=== PATIENT | female | born 1935 | race Caucasian/White ===

== ENCOUNTER 2023-03-09 22:10 | Inpatient (IN) | payer MEDICARE, OTHER ==
[2023-03-09] MEDS: Albuterol/Ipratropium 3.0-0.5 MG/3 ML Neb Soln NEB ONE ×2 (22:30→23:00)
[2023-03-09] MEDS: Albuterol/Ipratropium 3.0-0.5 MG/3 ML Neb Soln ONE (22:52)
[2023-03-09] MEDS: methylPREDNISolone Sodium Succinate 125 MG/2 ML SDV IVPUSH ONE (22:54)
[2023-03-09 22:59] LABS: BASE EXCESS VENOUS,POC -1 mmol/L (-2 - 3+); PCO2 VENOUS,POC 43 mmHg (41-51); PH VENOUS,POC 7.36 pH Units (7.32-7.43)
[2023-03-09 23:16] LABS: BASOPHILS PERCENT AUTO 0.2 % (0.2-1.5); EOSINOPHILS ABSOLUTE AUTO 0.1 x10-3/uL (0.0-0.8); EOSINOPHILS PERCENT AUTO 0.4 % (0.6-8.1); HEMATOCRIT 45.6 % (34.2-48.2); LYMPHOCYTES PERCENT AUTO 10.2 % (18.4-52.1); MEAN CORPUSCULAR HEMOGLOBIN 29.9 pg (23.9-33.9); MEAN CORPUSCULAR HGB CONC 32.9 g/dL (31.9-34.8); MEAN CORPUSCULAR VOLUME 90.9 fL (76.7-100.5); MEAN PLATELET VOLUME 9.5 fL (7.1-12.4); MONOCYTES ABSOLUTE AUTO 4.2 x10-3/uL (0.3-1.0); MONOCYTES PERCENT AUTO 21.1 % (4.4-15.7); NEUTROPHILS ABSOLUTE AUTO 13.7 x10-3/uL (1.5-6.3); NEUTROPHILS PERCENT AUTO 68.1 % (30.8-76.2); PLATELET COUNT,PLT 201 x10(3)uL (151-488); RED BLOOD CELL COUNT 5.01 x10(6)uL (3.60-5.20); WHITE BLOOD CELL COUNT,WBC 20.1 x10-3/uL (3.0-10.3)
[2023-03-09] MEDS: Sodium Chloride 0.9% 1,000 ML IV SCH (23:17)
[2023-03-09 23:19] LABS: A/G RATIO 0.9; ALANINE AMINOTRANSFERASE,ALT 20 U/L (12-36); ALKALINE PHOSPHATASE 104 IU/L (56-112); ASPARTATE AMNIOTRANSFERASE,AST 38 IU/L (5-25); BILIRUBIN TOTAL 0.7 mg/dL (0.1-1.3); BLOOD UREA NITROGEN,BUN 72 mg/dL (7-18); BUN/CREATININE RATIO 32.7 (9-20); CARBON DIOXIDE,CO2 23 mmol/L (21-32); CHLORIDE,CL 96 mmol/L (100-110); ESTIMATED GFR 21 mL/min (>60); GLUCOSE RANDOM 83 mg/dL (80-116); POTASSIUM,K 5.2 mmol/L (3.5-5.3); PROTEIN TOTAL,TP 6.4 g/dL (6.0-8.0); SODIUM,NA 134 mmol/L (135-145)
[2023-03-09 23:35] LABS: C-REACTIVE PROTEIN 7.98 mg/dL (<0.50); CREATININE 2.2 mg/dL (0.55-1.02); TROPONIN I 79.3 pg/mL (4.0-60.3)
[2023-03-10] MEDS ORDERED: Zolpidem 5 MG Tab PO PRN (00:05)
[2023-03-10] MEDS ORDERED: Acetaminophen 650 MG Supp RECTAL PRN (00:05)
[2023-03-10] MEDS ORDERED: Ondansetron 4 MG/2 ML SDV IV PRN (00:05)
[2023-03-10] MEDS ORDERED: Albuterol 0.083% 2.5 MG/3 ML Neb Soln NEB PRN (00:05)
[2023-03-10] MEDS: Mirtazapine 15 MG Tab PO SCH (00:23)
[2023-03-10] MEDS: Dextrose 5%-0.45% NaCl 1,000 ML IV SCH (00:23)
[2023-03-10] MEDS: cefTRIAXone 1 GM in Sodium Chloride 0.9% 50 ML IV SCH (01:23)
[2023-03-10] MEDS: Azithromycin 500 MG in Sodium Chloride 0.9% 250 ML IV SCH ×2 (01:31→01:34)
[2023-03-10 06:11] LABS: HEMATOCRIT 39.7 % (34.2-48.2); HEMOGLOBIN 13.2 g/dL (11.4-15.5); MEAN CORPUSCULAR HEMOGLOBIN 30.5 pg (23.9-33.9); MEAN CORPUSCULAR HGB CONC 33.3 g/dL (31.9-34.8); MEAN CORPUSCULAR VOLUME 91.5 fL (76.7-100.5); MEAN PLATELET VOLUME 9.1 fL (7.1-12.4); PLATELET COUNT,PLT 137 x10(3)uL (151-488); RED BLOOD CELL COUNT 4.33 x10(6)uL (3.60-5.20); RED CELL DISTRIBUTION WIDTH 14.2 % (12.3-16.5); WHITE BLOOD CELL COUNT,WBC 10.8 x10-3/uL (3.0-10.3)
[2023-03-10] MEDS: Albuterol/Ipratropium 3.0-0.5 MG/3 ML Neb Soln INH SCH (06:25)
[2023-03-10 06:45] LABS: BLOOD UREA NITROGEN,BUN 69 mg/dL (7-18); BUN/CREATININE RATIO 32.9 (9-20); CALCIUM 12.5 mg/dL (8.6-10.2); CARBON DIOXIDE,CO2 25 mmol/L (21-32); CHLORIDE,CL 99 mmol/L (100-110); ESTIMATED GFR 23 mL/min (>60); GLUCOSE RANDOM 147 mg/dL (80-116); POTASSIUM,K 4.9 mmol/L (3.5-5.3); SODIUM,NA 133 mmol/L (135-145)
[2023-03-10 06:47] LABS: CREATININE 2.1 mg/dL (0.55-1.02)
[2023-03-10 07:08] LABS: BAND PERCENT MAN 3 % (0-6); LYMPHOCYTES PERCENT MAN 10 % (13-37); MONOCYTES PERCENT MAN 1 % (4-12); SEG NEUTROPHILS PERCENT MAN 86 % (46-82)
[2023-03-10 07:09] LABS: POIKILOCYTOSIS FEW
[2023-03-10] MEDS: Enoxaparin 30 MG/0.3 ML Syringe SUBCUT SCH (10:06)
[2023-03-10] MEDS: LORazepam 0.5 MG Tab PO PRN (15:33)
[2023-03-10] MEDS: Acetaminophen 325 MG Tab PO PRN (16:48)
[2023-03-10] MEDS ORDERED: Mirtazapine 15 MG Tab PO SCH (21:00)
[2023-03-10] MEDS: cefTRIAXone 1 GM Vial IVPUSH SCH (21:51)
[2023-03-11 06:51] LABS: HEMATOCRIT 37.8 % (34.2-48.2); HEMOGLOBIN 12.4 g/dL (11.4-15.5); MEAN CORPUSCULAR HEMOGLOBIN 30.3 pg (23.9-33.9); MEAN CORPUSCULAR HGB CONC 32.8 g/dL (31.9-34.8); MEAN CORPUSCULAR VOLUME 92.4 fL (76.7-100.5); MEAN PLATELET VOLUME 9.1 fL (7.1-12.4); PLATELET COUNT,PLT 133 x10(3)uL (151-488); RED BLOOD CELL COUNT 4.09 x10(6)uL (3.60-5.20); RED CELL DISTRIBUTION WIDTH 13.9 % (12.3-16.5); WHITE BLOOD CELL COUNT,WBC 13.7 x10-3/uL (3.0-10.3)
[2023-03-11 07:03] LABS: A/G RATIO 0.8; ALANINE AMINOTRANSFERASE,ALT 18 U/L (12-36); ALBUMIN 2.3 g/dL (3.2-4.6); ALKALINE PHOSPHATASE 80 IU/L (56-112); ASPARTATE AMNIOTRANSFERASE,AST 28 IU/L (5-25); BILIRUBIN TOTAL 0.3 mg/dL (0.1-1.3); BLOOD UREA NITROGEN,BUN 63 mg/dL (7-18); CALCIUM 11.6 mg/dL (8.6-10.2); CARBON DIOXIDE,CO2 23 mmol/L (21-32); CHLORIDE,CL 95 mmol/L (100-110); CREATININE 1.8 mg/dL (0.55-1.02); EST CRCL DRUG DOSING (CG) 23.45 mL/min; ESTIMATED GFR 27 mL/min (>60); PROTEIN TOTAL,TP 5.3 g/dL (6.0-8.0); SODIUM,NA 129 mmol/L (135-145)
[2023-03-11 07:06] LABS: GLUCOSE RANDOM 447 mg/dL (80-116)
[2023-03-11 07:25] LABS: BAND PERCENT MAN 2 % (0-6); LYMPHOCYTES PERCENT MAN 5 % (13-37); MONOCYTES PERCENT MAN 11 % (4-12); SEG NEUTROPHILS PERCENT MAN 82 % (46-82)
[2023-03-11 07:26] LABS: POIKILOCYTOSIS FEW
[2023-03-11] MEDS: methylPREDNISolone Sodium Succinate 125 MG/2 ML SDV IVPUSH SCH (09:28)
[2023-03-11] MEDS: LORazepam 0.5 MG Tab PO PRN (22:09)
[2023-03-12 06:28] LABS: BLOOD UREA NITROGEN,BUN 63 mg/dL (7-18); CALCIUM 12.4 mg/dL (8.6-10.2); CARBON DIOXIDE,CO2 24 mmol/L (21-32); CHLORIDE,CL 102 mmol/L (100-110); CREATININE 1.4 mg/dL (0.55-1.02); EST CRCL DRUG DOSING (CG) 30.14 mL/min; ESTIMATED GFR 37 mL/min (>60); GLUCOSE RANDOM 130 mg/dL (80-116); POTASSIUM,K 4.9 mmol/L (3.5-5.3); SODIUM,NA 135 mmol/L (135-145)
[2023-03-12 06:30] LABS: HEMATOCRIT 41.4 % (34.2-48.2); HEMOGLOBIN 13.7 g/dL (11.4-15.5); MEAN CORPUSCULAR HEMOGLOBIN 30.3 pg (23.9-33.9); MEAN CORPUSCULAR HGB CONC 33.1 g/dL (31.9-34.8); MEAN CORPUSCULAR VOLUME 91.7 fL (76.7-100.5); MEAN PLATELET VOLUME 8.8 fL (7.1-12.4); PLATELET COUNT,PLT 116 x10(3)uL (151-488); RED BLOOD CELL COUNT 4.52 x10(6)uL (3.60-5.20); RED CELL DISTRIBUTION WIDTH 14.1 % (12.3-16.5)
[2023-03-12 06:46] LABS: BAND PERCENT MAN 2 % (0-6); LYMPHOCYTES PERCENT MAN 6 % (13-37); MONOCYTES PERCENT MAN 1 % (4-12); SEG NEUTROPHILS PERCENT MAN 91 % (46-82)
[2023-03-12 08:15] LABS: BILIRUBIN,URINE NEGATIVE (NEGATIVE); GLUCOSE,URINE NORMAL (NORMAL); KETONES,URINE NEGATIVE (NEGATIVE); LEUKOCYTE ESTERASE,URINE NEGATIVE (NEGATIVE); NITRITE,URINE NEGATIVE (NEGATIVE); OCCULT BLOOD,URINE NEGATIVE (NEGATIVE); PROTEIN,URINE NEGATIVE (NEGATIVE); UROBILINOGEN,URINE NORMAL (NEGATIVE)
[2023-03-12 08:18] LABS: APPEARANCE,URINE CLEAR (CLEAR); COLOR,URINE YELLOW (YELLOW); RBC,URINE 0-5 (0-5); SQUAMOUS EPITHELIAL CELLS,UR FEW (NS,R,O); WBC,URINE 0-5 (0-5)
[2023-03-12 08:19] LABS: BACTERIA,URINE MODERATE (NS); HYALINE CASTS,URINE MODERATE (NS)
[2023-03-12] MEDS: Magnesium Hydroxide 400 MG/5 ML Susp 30 ML Cup PO PRN (12:21)
[2023-03-12] MEDS: methylPREDNISolone Sodium Succinate 125 MG/2 ML SDV IVPUSH SCH (21:40)
[2023-03-13] MEDS: Morphine 2 MG/ML SYRINGE IVPUSH PRN (09:16)
[2023-03-13] MEDS ORDERED: Albuterol 0.083% 2.5 MG/3 ML Neb Soln NEB PRN (10:00)
[2023-03-13] MEDS: Budesonide 0.5 MG/2 ML Neb Susp INH SCH (10:40)
[2023-03-13] MEDS: Albuterol/Ipratropium 3.0-0.5 MG/3 ML Neb Soln INH SCH (10:41)
[2023-03-13] MEDS: LORazepam 0.5 MG Tab PO PRN (20:09)
[2023-03-14 06:35] LABS: HEMATOCRIT 43.2 % (34.2-48.2); HEMOGLOBIN 14.4 g/dL (11.4-15.5); MEAN CORPUSCULAR HEMOGLOBIN 30.2 pg (23.9-33.9); MEAN CORPUSCULAR HGB CONC 33.5 g/dL (31.9-34.8); MEAN CORPUSCULAR VOLUME 90.4 fL (76.7-100.5); MEAN PLATELET VOLUME 8.7 fL (7.1-12.4); PLATELET COUNT,PLT 146 x10(3)uL (151-488); RED BLOOD CELL COUNT 4.78 x10(6)uL (3.60-5.20); RED CELL DISTRIBUTION WIDTH 14.8 % (12.3-16.5); WHITE BLOOD CELL COUNT,WBC 14.1 x10-3/uL (3.0-10.3)
[2023-03-14 06:45] LABS: A/G RATIO 0.9; ALANINE AMINOTRANSFERASE,ALT 24 U/L (12-36); ALKALINE PHOSPHATASE 102 IU/L (56-112); ASPARTATE AMNIOTRANSFERASE,AST 29 IU/L (5-25); BILIRUBIN TOTAL 0.4 mg/dL (0.1-1.3); BLOOD UREA NITROGEN,BUN 65 mg/dL (7-18); CARBON DIOXIDE,CO2 24 mmol/L (21-32); CHLORIDE,CL 102 mmol/L (100-110); CREATININE 1.5 mg/dL (0.55-1.02); EST CRCL DRUG DOSING (CG) 28.14 mL/min; ESTIMATED GFR 34 mL/min (>60); GLUCOSE RANDOM 123 mg/dL (80-116); POTASSIUM,K 5.1 mmol/L (3.5-5.3); PROTEIN TOTAL,TP 6.2 g/dL (6.0-8.0); SODIUM,NA 138 mmol/L (135-145)
[2023-03-14 06:47] LABS: BUN/CREATININE RATIO 43.3 (9-20)
[2023-03-14 06:48] LABS: CALCIUM 13.8 mg/dL (8.6-10.2)
[2023-03-14 07:01] LABS: LYMPHOCYTES PERCENT MAN 5 % (13-37); MONOCYTES PERCENT MAN 6 % (4-12); SEG NEUTROPHILS PERCENT MAN 89 % (46-82)
[2023-03-14] MEDS: predniSONE 20 MG Tab PO SCH (10:05)
[2023-03-14] MEDS: Amoxicillin/Clavulanate K 500-125 MG Tab PO SCH (10:05)
[2023-03-14] MEDS: Acetaminophen 500 MG Tab PO SCH (13:32)
[2023-03-14] MEDS: LORazepam 0.5 MG Tab PO SCH (13:33)
[2023-03-15] MEDS: Sodium Chloride 0.9% 1,000 ML IV SCH (12:24)
[2023-03-15] MEDS: LORazepam 1 MG Tab PO SCH (12:24)
[2023-03-15] MEDS: QUEtiapine 25 MG Tab PO SCH (22:25)
[2023-03-16 06:58] LABS: HEMATOCRIT 45.3 % (34.2-48.2); HEMOGLOBIN 15.3 g/dL (11.4-15.5); MEAN CORPUSCULAR HEMOGLOBIN 30.9 pg (23.9-33.9); MEAN CORPUSCULAR HGB CONC 33.8 g/dL (31.9-34.8); MEAN CORPUSCULAR VOLUME 91.4 fL (76.7-100.5); MEAN PLATELET VOLUME 9.6 fL (7.1-12.4); PLATELET COUNT,PLT 122 x10(3)uL (151-488); RED BLOOD CELL COUNT 4.95 x10(6)uL (3.60-5.20); RED CELL DISTRIBUTION WIDTH 14.4 % (12.3-16.5); WHITE BLOOD CELL COUNT,WBC 24.4 x10-3/uL (3.0-10.3)
[2023-03-16 07:09] LABS: ALANINE AMINOTRANSFERASE,ALT 47 U/L (12-36); ALBUMIN 2.9 g/dL (3.2-4.6); ALKALINE PHOSPHATASE 144 IU/L (56-112); ASPARTATE AMNIOTRANSFERASE,AST 52 IU/L (5-25); BILIRUBIN TOTAL 0.6 mg/dL (0.1-1.3); BLOOD UREA NITROGEN,BUN 69 mg/dL (7-18); CARBON DIOXIDE,CO2 24 mmol/L (21-32); CHLORIDE,CL 105 mmol/L (100-110); CREATININE 1.4 mg/dL (0.55-1.02); EST CRCL DRUG DOSING (CG) 30.14 mL/min; ESTIMATED GFR 37 mL/min (>60); GLUCOSE RANDOM 90 mg/dL (80-116); POTASSIUM,K 5.3 mmol/L (3.5-5.3); PROTEIN TOTAL,TP 5.7 g/dL (6.0-8.0); SODIUM,NA 140 mmol/L (135-145)
[2023-03-16 07:20] LABS: BUN/CREATININE RATIO 49.3 (9-20)
[2023-03-16 07:21] LABS: CALCIUM 14.1 mg/dL (8.6-10.2)
[2023-03-16 07:28] LABS: BAND PERCENT MAN 2 % (0-6); LYMPHOCYTES PERCENT MAN 4 % (13-37); MONOCYTES PERCENT MAN 6 % (4-12); SEG NEUTROPHILS PERCENT MAN 88 % (46-82)
[2023-03-16] MEDS ORDERED: LORazepam 2 MG/ML SDV IVPUSH PRN (09:00)
[2023-03-16] MEDS: LORazepam 1 MG Tab PO SCH (09:17)
[2023-03-16] MEDS: Morphine 2 MG/ML SYRINGE IVPUSH PRN (13:04)
[2023-03-16] MEDS: Scopalamine 1mg/3day Transdermal Patch TRDERM PRN (13:20)
[2023-03-16] MEDS: Sodium Chloride 0.9% 10 ML Syringe FLUSH PRN (15:50)
[2023-03-16] MEDS: LORazepam 2 MG/ML SDV IVPUSH SCH (15:50)
[2023-03-16] MEDS ORDERED: QUEtiapine 25 MG Tab PO SCH (21:00)
[2023-03-19 01:58] LABS: CALCIUM IONIZED PH 7.4 1.78 mmol/L (1.09-1.30); CALCIUM,IONIZED SERUM 1.73 mmol/L (1.09-1.30)
== END 2023-03-16 20:02 | disposition expired | DRG 193 ==
LOC: FB.ED 22:10 → FB.MS 23:46
PROVIDERS: ADMIT Family Medicine; ATTEND Family Medicine
PROC: 5A09357 Assistance with Respiratory Ventilation, Less than 24 Consecutive Hours, Continuous Positive Airway Pressure (ICD-10-PCS; principal; 2023-03-09)
DX: J96.00 Acute respiratory failure, unspecified whether with hypoxia or hypercapnia (principal); J18.9 Pneumonia, unspecified organism; J44.9 Chronic obstructive pulmonary disease, unspecified; N19 Unspecified kidney failure; J96.21 Acute and chronic respiratory failure with hypoxia; J44.0 Chronic obstructive pulmonary disease with (acute) lower respiratory infection; J44.1 Chronic obstructive pulmonary disease with (acute) exacerbation; N17.9 Acute kidney failure, unspecified; R44.3 Hallucinations, unspecified; C23 Malignant neoplasm of gallbladder; E87.1 Hypo-osmolality and hyponatremia; Z66 Do not resuscitate; Z51.5 Encounter for palliative care; E83.52 Hypercalcemia; I10 Essential (primary) hypertension; R45.1 Restlessness and agitation; K59.09 Other constipation; R79.89 Other specified abnormal findings of blood chemistry; F17.210 Nicotine dependence, cigarettes, uncomplicated; F41.9 Anxiety disorder, unspecified; E88.09 Other disorders of plasma-protein metabolism, not elsewhere classified; E03.9 Hypothyroidism, unspecified; Z88.6 Allergy status to analgesic agent; Z88.8 Allergy status to other drugs, medicaments and biological substances; Z99.81 Dependence on supplemental oxygen; Z99.89 Dependence on other enabling machines and devices; Z98.890 Other specified postprocedural states; Z79.899 Other long term (current) drug therapy; Z91.198 Patient's noncompliance with other medical treatment and regimen for other reason
CPT/HCPCS: 36415; 71045; 80048; 80053; 81001; 82330; 82947; 83605; 83735; 84443; 84484; 85025; 85379; 86140; 87040; 93005; 93010; 94640; 96374; 99222; 99232; 99233; 99238; 99285; 99285-25; A9270-GY; J0456; J0696; J2060; J2270; J2930; J3490; J7030; J7042; J7050; J7512; J7620